=== PATIENT | male | born 1970 | race Caucasian/White ===

== ENCOUNTER 2025-06-29 04:14 | Emergency (ER) | payer BC, OTHER, SELFPAY ==
[2025-06-29 04:19] VITALS: BP 152/80
[2025-06-29 04:31] LABS: Hematocrit 46.0 % (39.0-52.0); Hemoglobin 15.9 g/dL (13.0-18.0); Mean Corp Hgb Conc. 34.6 g/dL (33.0-37.0); Mean Corpuscular Volume 88.6 fL (80.0-94.0); Nucleated Red Blood Cells % 0 % (-); Platelet Count 301 10^3/uL (130-400); Red Cell Dist. Width 13.1 % (11.5-14.5)
[2025-06-29 04:50] VITALS: BP 149/88
[2025-06-29 04:59] LABS: ALT (SGPT) 31 U/L (0-50); AST (SGOT) 22 U/L (17-59); Albumin 4.6 g/dl (3.5-5.0); Alkaline Phosphatase 53 U/L (38-126); Blood Urea Nitrogen 14 mg/dl (9-20); Calcium 9.8 mg/dl (8.4-10.2); Carbon Dioxide 31 mmol/L (22-30); Chloride 103 mmol/L (98-107); Glucose 127 mg/dl (70-99); Lipase 133 U/L (23-300); Potassium 4.0 mmol/L (3.5-5.1); Sodium 142 mmol/L (135-145); Total Protein 7.5 g/dl (6.3-8.2); eGFR > 60.00
[2025-06-29 05:00] VITALS: BP 138/86
[2025-06-29 05:09] LABS: Troponin I < 0.012 ng/ml
[2025-06-29 06:00] VITALS: BP 137/82
--- NOTE | 2025-06-29 06:28 | ED.GENMED ---
History of Present Illness
<Abdulkadir Martin DO, Resident - Last Filed: 06/29/25 10:24>
General
Chief Complaint: Abdominal Pain
Source: patient
Exam Limitations: none
Time Seen by Provider: 06/29/25 06:01
Nursing documentation reviewed up to this point in time: agreed with
History of Present Illness
History of Present Illness:
Chris Ford is a 55M with past medical history of HTN, ventral/umbilical hernia, and broken R rib (#unknown) in 2020, who is presenting with right sided upper abdominal/anterior chest wall pain. Characterized as stabbing and colicky pain with
radiation laterally. Patient states this episode started around 4.5 hours ago. Was sleeping when it started, woke from sleep. Endorses eating a low fat meal last night. Has not tried OTC meds. Nothing makes the pain better. Pain ranges from 7.5 to
10/10, 8 out of 10 now. States he experienced a similar episode 3 nights ago that resolved after 6 hours. had other instances of similar pain with much lower intensity in the past, which the patient attributed to his history of broken rib, but now
thinks it may be related. Otherwise denies dyspnea, nausea, vomiting, diarrhea, constipation, blood in the stool, urinary symptoms, jaundice, icterus, shortness of breath, diaphoresis.
Historically, patient also endorses a condition which he is being worked up for where his lip swelling and hives. He thinks it may be IgE mediated. 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 The symptoms are more chronic and patient believes they are
unrelated.
Past History
<Abdulkadir Martin DO, Resident - Last Filed: 06/29/25 10:24>
Past History
ED Past Medical History: HTN and Other ( Right sided rib fracture)
Review of Systems
<Abdulkadir Martin DO, Resident - Last Filed: 06/29/25 10:24>
Review of Systems
Allergies reviewed?: Yes
All Other Systems: ROS reviewed and negative except as documented in HPI and ROS
Phy Exam
<Abdulkadir Martin DO, Resident - Last Filed: 06/29/25 10:24>
Physical Exam
Physical Exam:
General: elevated BMI, mildly uncomfortable male
HEENT: sclera anicteric, EOMI
CV: RRR, no m/r/g
Resp: CTAB, no wheezing, rales, rhonchi
Abdomen: soft, nondistended. Voluntary guarding. Moderately tender in the RUQ and anterior chest wall. Chun's sign questionable secondary to guarding. No McBurney point tenderness. All other quadrants and epigastrium nontender to palpation.
Neuro: Alert, awake, AOx3
Psych: Calm, normal affect
Scores
<Abdulkadir Martin DO, Resident - Last Filed: 06/29/25 10:24>
Heart Failure Risk
Heart Failure Risk Score: Not Applicable
Heart Score for Chest Pain Patients
STEMI patient?: Not applicable
Withdrawal Assessment of Alcohol
Withdrawal Assessment Completed?: Not applicable
Course
<Abdulkadir Martin DO, Resident - Last Filed: 06/29/25 10:24>
Orders/Labs/Results
Orders:
Orders
06/29/25 04:15
Electrocardiogram (*1) Urgent
Reason for Study: Chest Pain
Cardiac Monitoring- Treatment ONCE
EKG- Treatment ONCE
IV Insert/Care/Rem.- Treatment PRN
O2 Therapy [RESP] Urgent
Titrate/Wean O2 to maintain O2 sat greater than (%): 90
Special Instructions: Maintain sats >/=90%
Pulse Ox/spot Check [RESP] Urgent
Quantity: 1
Special Instructions: ON ROOM AIR
06/29/25 04:24
Complete Blood Count/With Diff Urgent
Comprehensive Metabolic Panel Urgent
Lipase Urgent
Troponin I Urgent
06/29/25 06:34
Ketorolac [Toradol] 15 mg IV Q6HPRN PRN
06/29/25 06:44
US Abdomen Complete/Upper Urgent
Comment:
Reason For Exam: RUQ pain
06/29/25 06:50
CT Abd/pelvis W Iv Cont Urgent
Comment:
Reason For Exam: Severe R chest and RUQ pain
06/29/25 06:52
HYDROmorphone [Dilaudid] 1 mg IV Q4HPRN PRN
Ondansetron Injectable [Zofran] 4 mg IV Q6HPRN PRN
Abnormal Lab Results
06/29/25
04:24
Absolute Monos (auto) 0.8 H 10^3/uL
(0.1-0.6)
Monocytes % 11.2 H %
(1.7-9.3)
Carbon Dioxide 31 H mmol/L
(22-30)
Glucose 127 H mg/dl
(70-99)
06/29/25 04:24
06/29/25 04:24
Vital Signs
Initial and Last Documented VS:
Initial Vital Signs
Temp Pulse Resp BP Pulse Ox
98.6 F 74 20 152/80 97
06/29/25 04:19 06/29/25 04:19 06/29/25 04:19 06/29/25 04:19 06/29/25 04:19
Last Documented Vital Signs
Temp Pulse Resp BP Pulse Ox
98.6 F 62 13 123/77 98
06/29/25 04:19 06/29/25 08:23 06/29/25 08:23 06/29/25 08:22 06/29/25 08:23
<August Shea, DO - Last Filed: 06/29/25 06:42>
Orders/Labs/Results
Orders:
Orders
06/29/25 04:15
Electrocardiogram (*1) Urgent
Reason for Study: Chest Pain
Cardiac Monitoring- Treatment ONCE
EKG- Treatment ONCE
IV Insert/Care/Rem.- Treatment PRN
O2 Therapy [RESP] Urgent
Titrate/Wean O2 to maintain O2 sat greater than (%): 90
Special Instructions: Maintain sats >/=90%
Pulse Ox/spot Check [RESP] Urgent
Quantity: 1
Special Instructions: ON ROOM AIR
06/29/25 04:24
Complete Blood Count/With Diff Urgent
Comprehensive Metabolic Panel Urgent
Lipase Urgent
Troponin I Urgent
06/29/25 06:34
Ketorolac [Toradol] 15 mg IV Q6HPRN PRN
06/29/25 06:44
US Abdomen Complete/Upper Urgent
Comment:
Reason For Exam: RUQ pain
06/29/25 06:50
CT Abd/pelvis W Iv Cont Urgent
Comment:
Reason For Exam: Severe R chest and RUQ pain
06/29/25 06:52
HYDROmorphone [Dilaudid] 1 mg IV Q4HPRN PRN
Ondansetron Injectable [Zofran] 4 mg IV Q6HPRN PRN
Abnormal Lab Results
06/29/25
04:24
Absolute Monos (auto) 0.8 H 10^3/uL
(0.1-0.6)
Monocytes % 11.2 H %
(1.7-9.3)
Carbon Dioxide 31 H mmol/L
(22-30)
Glucose 127 H mg/dl
(70-99)
06/29/25 04:24
06/29/25 04:24
Vital Signs
Initial and Last Documented VS:
Initial Vital Signs
Temp Pulse Resp BP Pulse Ox
98.6 F 74 20 152/80 97
06/29/25 04:19 06/29/25 04:19 06/29/25 04:19 06/29/25 04:19 06/29/25 04:19
Last Documented Vital Signs
Temp Pulse Resp BP Pulse Ox
98.6 F 62 13 123/77 98
06/29/25 04:19 06/29/25 08:23 06/29/25 08:23 06/29/25 08:22 06/29/25 08:23
<Abdulkadir Martin DO, Resident - Last Filed: 06/29/25 10:24>
MDM/Problems Addressed
Differential Diagnosis Includes:
Cholecystitis, biliary colic, gastritis, anterior chest wall musculoskeletal pain
MDM/Problems Addressed:
55M with PMHx HTN, umbilical and ventral hernia (repaired), and R rib fx in 2020 who presented with 2 episodes of stabbing colicky RUQ pain, R anterior chest wall pain over the past 4 days without other associated symptoms. Basic labs unremarkable.
EKG NSR with nonspecific ST-T changes. Troponin negative. Lipase negative. LFTs normal. Will obtain RUQ US r/o GB pathology and CT abd w/ IVC since the pain is also on the anterior chest wall. Pain control and antiemetics provided. Pain adequately
controlled with IV dilaudid.
CT Abd/Pelv w/ IV: Mild pericholecystic edema/inflammatory change without discrete calcified gallstones identified by CT. Acute cholecystitis not definitely excluded. Pending US.
US RUQ: Gallbladder sludge without discrete gallstones or sonographic evidence for acute cholecystitis. Findings of fatty liver.
Plan is to discharge home with outpatient follow up with primary care and general surgery. Patient given short course of PRN pain medication. Return instructions provided.
<Abdulkadir Martin DO, Resident - Last Filed: 06/29/25 10:24>
*Pulse Oximetry
SaO2: 97
Oxygen Mode of Delivery: Room air
Patient hypoxic: no
*Critical Care Note
Total Time (30-74mins, 75-104mins- exclusive of procedures): Not Applicable
ED Attending Note
<Abdulkadir Martin DO, Resident - Last Filed: 06/29/25 10:24>
-
Portions of this chart may have been created with voice recognition software.� Occasional wrong word or��sound alike� substitutions may have occurred due to the inherent limitations of voice recognition software.
<August Shea DO - Last Filed: 06/29/25 06:42>
ED Attending Note
Patient seen and examined by attending physician: Yes
I performed a history and physical exam of patient and discussed management with resident, I reviewed resident's note and agree with documented findings and plan of care.: Yes
ED Attending Note:
I evaluated the patient at bedside. Labs including LFTs and troponin unremarkable. Sinus [address] abnormality
Discharge Plan
Departure
Patient Disposition: Home (Routine Discharge)
Date of Disposition: 06/29/25
Time of Disposition: 09:46
Patient with high blood pressure during this ER visit?: Yes
Condition: Good
Discharge Problem:
Anterior chest wall pain, Gallbladder sludge
Instructions: Abdominal Pain
Prescriptions:
New
oxycodone-acetaminophen [Percocet] 5-325 mg tablet
1 - 2 tab PO Q6HPRN PRN (Reason: pain) Qty: 10 0RF
No Action
losartan-hydrochlorothiazide
1 tab PO DAILY
Referrals:
Beto Mckinney DO [Family Provider, Family Practice] - Follow up in 1 week
William Kendall MD [Active, Surgical]
Interventions
Interventions:
*General Assessment Last Done: 06/29/25 05:20
*Neglect/Abuse Screening Last Done: 06/29/25 04:19
*ED COVID-19 Vaccine History Last Done: 06/29/25 05:20
*ED Influenza Vaccine History Last Done: 06/29/25 05:20
[facility] Fall Risk Assessment Tool Last Done: 06/29/25 05:50
*Risk Screen - Suicide (C-SSRS) Last Done: 06/29/25 05:20
FT-Gnrcjr-Mspetqtlha Assessment Last Done: 06/29/25 05:50
Discharge Date and Time
Print Language: SPANISH
[2025-06-29] MEDS: TORADOL 15 MG IV (06:37)
[2025-06-29 07:00] VITALS: BP 132/85
[2025-06-29] MEDS: DILAUDID 1 MG IV (07:02)
[2025-06-29] MEDS: ZOFRAN 4 MG IV (07:03)
[2025-06-29 08:22] VITALS: BP 123/77
== END 2025-06-29 11:00 | disposition home or self-care (01) ==
LOC: EMR 04:14
PROVIDERS: Emergency Medicine; EMERGENCY PHYSICIAN Emergency Medicine; FAMILY PHYSICIAN Family Medicine
DX: R07.89 Other chest pain (principal); K82.8 Other specified diseases of gallbladder; I10 Essential (primary) hypertension
CPT/HCPCS: 99284; 96374; 96375; 74177; 76700; 80053; 83690; 84484; 85025; 93005; Q9967